=== PATIENT | female | born 1970 | race Caucasian/White ===

== ENCOUNTER 2023-08-29 17:43 | Emergency (ER) | payer OTHER ==
[2023-08-29 18:45] VITALS: BP 133/74; PULSE 79; RESP 18; TEMP 97.9; BMI 29.9
== END 2023-08-29 18:47 | disposition home or self-care (01) ==
LOC: FER 17:43
DX: S09.90XA Unspecified injury of head, initial encounter (principal); W22.8XXA Striking against or struck by other objects, initial encounter; Y92.219 Unspecified school as the place of occurrence of the external cause; Y93.9 Activity, unspecified
CPT/HCPCS: 99281-25